=== PATIENT | female | born 1990 | race Caucasian/White ===

== ENCOUNTER 2016-11-18 08:45 | Emergency (ER) | payer MEDICAID, OTHER ==
[~2016-11-18] VITALS: Wt 44.0 kg
[~2016-11-18 08:45] MED LIST: CYCL-319 PO; IBUP-1542 PO
[2016-11-18] MEDS ORDERED: HYDROCODONE/APAP (5/325) TAB PO ONE (10:00)
[2016-11-18 10:16] LABS: ADD UMIC NO; URINE BILIRUBIN (Dip) NEGATIVE (NEGATIVE); URINE BLOOD (Dip) NEGATIVE (NEGATIVE); URINE COLOR LT. YELLOW (YELLOW); URINE GLUCOSE (Dip) NEGATIVE (NEGATIVE); URINE KETONES (Dip) NEGATIVE (NEGATIVE); URINE LEUKOCYTE ESTERASE (Dip) NEGATIVE (NEGATIVE); URINE NITRITE (Dip) NEGATIVE (NEGATIVE); URINE TOTAL PROTEIN (Dip) NEGATIVE (NEGATIVE); URINE UROBILINOGEN (Dip) 0.2 E.U./dL (0.1-1.0)
[2016-11-18 10:19] LABS: BASOPHILS % 0.4 % (0.0-2.0); EOSINOPHILS # 0.1 10^3/ul (0.0-0.5); EOSINOPHILS % 1.4 % (0.0-7.0); HEMATOCRIT 41.4 % (37.0-47.0); HEMOGLOBIN 14.6 g/dl (12.0-16.0); LYMPHOCYTES # 2.1 10^3/ul (0.8-2.9); LYMPHOCYTES % 40.6 % (15.0-51.0); MEAN CORPUSCULAR HEMOGLOBIN 30.5 pg (29.0-33.0); MEAN CORPUSCULAR HGB CONC 35.2 g/dl (32.0-37.0); MEAN CORPUSCULAR VOLUME 86.5 fl (82.0-101.0); MEAN PLATELET VOLUME 7.9 fl (7.4-10.4); MONOCYTE # 0.2 10^3/ul (0.3-0.9); MONOCYTES % 4.8 % (0.0-11.0); NEUTROPHIL # 2.7 10^3/ul (1.6-7.5); NEUTROPHILS % 52.8 % (39.0-77.0); PLATELET COUNT 257 10^3/UL (140-440); RED BLOOD COUNT 4.78 10^6/ul (4.20-5.40); UNCORRECTED WBC 5.1 10^3/ul (4.8-10.8); WHITE BLOOD COUNT 5.1 10^3/ul (4.8-10.8)
--- NOTE | 2016-11-18 10:24 | RADRPT ---
PROCEDURE: Right Upper Quadrant Ultrasound. CLINICAL INDICATION: RUQ pain x 4 days TECHNIQUE: Multiple real-time images were acquired of the patient's right upper quadrant abdomen a nd retroperitoneum utilizing a high resolution transducer. COMPARISON: None FINDINGS: The liver measures 11.3 cm, and demonstrates mildly increased echogenicity. The main portal vein is patent with proper directional flow. There is no intrahepatic biliary ductal dilatation. The extrahe patic common bile duct measures 3 mm. The gallbladder is without stones, wall thickening, or pericholecystic fluid. There are 2 nonspecific echogenic lesion projecting intraluminally from the gallbladder wall measuri ng up to 3 mm each which are likely gallbladder polyps. The visualized pancreas is unremarkable. The right kidney measures 8.9 x 4.1 x 4.2 cm and demonstrates normal echotexture. There is no right renal calculus or hydronephrosis. The visualized abdominal aorta and IVC are grossly unremarkable. IMPRESSION: Mild fatty infiltration of the liver. No cholelithiasis or acute cholecystitis. Normal CBD. 2 likely gallbladder polyps measuring up to 3 mm. RPTAT: EE Physician Hank Date Time Electronically viewed and signed by Physician Hank on 11/18/2016 10:24 /
[2016-11-18 10:25] LABS: ALBUMIN 4.7 g/dl (3.3-4.9); CONDITION 1
[2016-11-18 10:27] LABS: BILIRUBIN,INDIRECT 0.2 mg/dl (0-1.1); BILIRUBIN,TOTAL 0.2 mg/dl (0.2-1.3); CREATININE 0.7 mg/dl (0.44-1.00)
[2016-11-18 10:28] LABS: ALBUMIN/GLOBULIN RATIO 1.3; CALCIUM 9.7 mg/dl (8.4-10.2); TOTAL PROTEIN 8.3 g/dl (6.1-8.1)
--- NOTE | 2016-11-18 10:59 | ERD ---
ER Documentation Chief Complaint Date/Time DATE: 11/18/16 TIME: 10:57 Chief Complaint right side abdominal pain for 4 days. no n/v/d. no dysuria HPI 26-year-old female otherwise healthy comes in with right upper quadrant abdominal pain for the past 4 days that radiates to her right back. Patient describes it as being colicky, on and off, mild to moderate pain. She denies any fever, chills, nausea or vomiting. No urinary complaints or hematuria. ROS All systems reviewed and are negative except as per history of present illness. Medications Home Meds Active Scripts Cyclobenzaprine Hcl* (Cyclobenzaprine Hcl*) 10 Mg Tablet, 10 MG PO TID, #30 TAB Prov:ALAN THOMAS MD 02/29/16 Ibuprofen* (Motrin*) 600 Mg Tab, 600 MG PO Q6, #30 TAB Prov:ALAN THOMAS MD 02/29/16 Allergies Allergies: Coded Allergies: No Known Allergy (Unverified , 02/29/16) PMhx/Soc History of Surgery: No Anesthesia Reaction: No Hx Neurological Disorder: No Hx Respiratory Disorders: No Hx Cardiac Disorders: No Hx Psychiatric Problems: No Hx Miscellaneous Medical Probl: No Hx Alcohol Use: No Hx Substance Use: No Hx Tobacco Use: No Smoking Status: Never smoker Physical Exam Vitals Vital Signs Date Time Temp Pulse Resp B/P Pulse Ox O2 Delivery O2 Flow Rate FiO2 11/18/16 08:54 97.9 83 18 121/58 98 Physical Exam General: Well-developed, well-nourished. The patient appears in no acute distress. HEENT: Head is normocephalic, atraumatic. No scleral icterus. Pupils are equal , round, and reactive. Oral mucous membranes are moist. No pharyngeal erythema. Neck: Supple. Nontender. Lungs: Clear to auscultation. Normal air movement. Heart: Regular rate and rhythm. S1 and S2 are normal. No murmurs, gallops, or rubs. Abdomen: Soft, mildly tender in the right upper quadrant, negative Beckford sign, also tender in the epigastric region, nondistended. Bowel sounds are normoactive. Extremities: No clubbing or cyanosis. Normal pulses. Moving extremities x 4. No weakness. Neurologic: Alert and oriented 3. No focal deficits. Skin: Normal turgor. No rash or lesions. Result Diagram: 11/18/1645 11/18/16 0945 Results 24 hrs Laboratory Tests Test 11/18/16 09:45 Alanine Aminotransferase (ALT/SGPT) 22IU/L Albumin 4.7g/dl Albumin/Globulin Ratio 1.30 Alkaline Phosphatase 76IU/L Anion Gap 16 Aspartate Amino Transf (AST/SGOT) 24IU/L Basophils # 0.010^3/ul Basophils % 0.4% Blood Urea Nitrogen 15mg/dl Calcium Level 9.7mg/dl Carbon Dioxide Level 29mmol/L Chloride Level 102mmol/L Creatinine 0.70mg/dl Direct Bilirubin 0.00mg/dl Eosinophils # 0.110^3/ul Eosinophils % 1.4% Globulin 3.60g/dl Glucose Level 89mg/dl Hematocrit 41.4% Hemoglobin 14.6g/dl Indirect Bilirubin 0.2mg/dl Lipase 55U/L Lymphocytes # 2.110^3/ul Lymphocytes % 40.6% Mean Corpuscular Hemoglobin 30.5pg Mean Corpuscular Hemoglobin Concent 35.2g/dl Mean Corpuscular Volume 86.5fl Mean Platelet Volume 7.9fl Monocytes # 0.210^3/ul Monocytes % 4.8% Neutrophils # 2.710^3/ul Neutrophils % 52.8% Nucleated Red Blood Cells # 0.010^3/ul Nucleated Red Blood Cells % 0.0/100WBC Platelet Count 34110^3/UL Potassium Level 4.0mmol/L Red Blood Count 4.7810^6/ul Red Cell Distribution Width 13.0% Sodium Level 143mmol/L Total Bilirubin 0.2mg/dl Total Protein 8.3g/dl Urine Bilirubin NEGATIVE Urine Clarity CLEAR Urine Color LT. YELLOW Urine Glucose NEGATIVE% Urine Hemoglobin NEGATIVE Urine Ketones NEGATIVE Urine Leukocyte Esterase NEGATIVE Urine Nitrite NEGATIVE Urine Specific Anderson 1.010 Urine Total Protein NEGATIVE Urine Urobilinogen 0.2 E.U./dL Urine pH 5.5 White Blood Count 5.110^3/ul Current Medications Medications (Trade) Dose Ordered Sig/Tico Route PRN Reason Start Time Stop Time Status Last Admin Dose Admin Acetaminophen/ Hydrocodone Bitart ([employer] (5/325)) 1 tab ONCE ONCE PO 11/18/16 10:00 11/18/16 10:01 DC 11/18/16 09:39 PROCEDURE: Right Upper Quadrant Ultrasound. CLINICAL INDICATION: RUQ pain x 4 days TECHNIQUE: Multiple real-time images were acquired of the patient's right upper quadrant abdomen and retroperitoneum utilizing a high resolution transducer. COMPARISON: None FINDINGS: The liver measures 11.3 cm, and demonstrates mildly increased echogenicity. The main portal vein is patent with proper directional flow. There is no intrahepatic biliary ductal dilatation. The extrahepatic common bile duct measures 3 mm. The gallbladder is without stones, wall thickening, or pericholecystic fluid. There are 2 nonspecific echogenic lesion projecting intraluminally from the gallbladder wall measuring up to 3 mm each which are likely gallbladder polyps. The visualized pancreas is unremarkable. The right kidney measures 8.9 x 4.1 x 4.2 cm and demonstrates normal echotexture. There is no right renal calculus or hydronephrosis. The visualized abdominal aorta and IVC are grossly unremarkable. IMPRESSION: Mild fatty infiltration of the liver. No cholelithiasis or acute cholecystitis. Normal CBD. 2 likely gallbladder polyps measuring up to 3 mm. RPTAT: EE Physician Hank Date Time Electronically viewed and signed by Physician Hank on 11/18/2016 10:24 RA/ Procedures/MDM ED course: She had labs and urine obtained. She was given [employer] for pain. MDM: 26-year-old female comes in with upper quadrant pain, gallbladder ultrasound shows polyps, as well as hepatic fatty infiltration of liver, there is no evidence of acute cholecystitis, acute cholangitis, choledocholithiasis or pancreatitis. Dietary precautions are given, she is asked to follow-up with her primary care doctor to get a referral to see GI in the next week. Departure Diagnosis: Primary Impression: Gallbladder polyp Additional Impressions: Abdominal pain Fatty liver Condition: Good Patient Instructions: Non-Alcoholic Fatty Liver Disease (NAFLD) Referrals: COMMUNITY CLINICS YOU HAVE RECEIVED A MEDICAL SCREENING EXAM AND THE RESULTS INDICATE THAT YOU DO NOT HAVE A CONDITION THAT REQUIRES URGENT TREATMENT IN THE EMERGENCY DEPARTMENT. FURTHER EVALUATION AND TREATMENT OF YOUR CONDITION CAN WAIT UNTIL YOU ARE SEEN IN YOUR DOCTORS OFFICE WITHIN THE NEXT 1-2 DAYS. IT IS YOUR RESPONSIBILITY TO MAKE AN APPOINTMENT FOR FOLOW-UP CARE. IF YOU HAVE A PRIMARY DOCTOR --you should call your primary doctor and schedule an appointment IF YOU DO NOT HAVE A PRIMARY DOCTOR YOU CAN CALL OUR PHYSICIAN REFERRAL HOTLINE AT IF YOU CAN NOT AFFORD TO SEE A PHYSICIAN YOU CAN CHOSE FROM THE FOLLOWING [facility] [address] [facility] [address] [facility] [address] [facility] [address] [facility] [address] [facility]. [facility] [address] [facility]. [facility] YOU HAVE RECEIVED A MEDICAL SCREENING EXAM AND THE RESULTS INDICATE THAT YOU DO NOT HAVE A CONDITION THAT REQUIRES URGENT TREATMENT IN THE EMERGENCY DEPARTMENT. FURTHER EVALUATION AND TREATMENT OF YOUR CONDITION CAN WAIT UNTIL YOU ARE SEEN IN YOUR DOCTORS OFFICE WITHIN THE NEXT 1-2 DAYS. IT IS YOUR RESPONSIBILITY TO MAKE AN APPOINTMENT FOR FOLOW-UP CARE. IF YOU HAVE A PRIMARY DOCTOR --you should call your primary doctor and schedule and appointment IF YOU DO NOT HAVE A PRIMARY DOCTOR YOU CAN CALL OUR PHYSICIAN REFERRAL HOTLINE AT . IF YOU CAN NOT AFFORD TO SEE A PHYSICIAN YOU CAN CHOSE FROM THE FOLLOWING [facility] INSTITUTIONS: [facility] [address] [place] [address] [facility] [address] [place] [address] [facility] [address] [place] [address] [facility] URGENT CARE/SPECIALTIES Additional Instructions: GASTROENTEROLOGY Specialist:Usted tiene tony condicin mdica que requiere que paul a un especialista dentro de los prximos 1-2 [place].POR FAVOR,CON [place] SEGUIMIENTO DE PRIMARIA PHSICIAN refferal. SI USTED NO TIENE UN MDICO GENERAL Y / O USTED NO PUEDE PAGAR connie a un mdico,los siguientes mcneil RECURSOS sido suministrado a usted. ES [place] RESPONSABILIDAD PARA SER VISTOS POR EL ESPECIALISTA: DOMINIK MCCANN PA-C Nov 18, 2016 10:59
== END 2016-11-18 11:00 | disposition home or self-care (01) ==
LOC: FTE 08:45
DX: K82.4 Cholesterolosis of gallbladder (principal); K76.0 Fatty (change of) liver, not elsewhere classified
CPT/HCPCS: 76705; 80053; 81003; 83690; 85025; Z7610; 36415